=== PATIENT | male | born 1965 | race Caucasian/White ===

== ENCOUNTER 2017-05-17 13:22 | Inpatient (IN) | payer MEDICAID, MEDICARE ==
[~2017-05-17 13:22] MED LIST: NS 0.9% 1000 ML* 1,000 ML IV SCH
[2017-05-17] MEDS ORDERED: Haloperidol TAB* 5 MG PO ONE (19:38)
[2017-05-17] MEDS ORDERED: Haloperidol TAB* 5 MG ONE (19:40)
--- NOTE | 2017-05-17 22:11 | ED ---
Sugar Arguello Alfonso, scribed for Walker Rosales MD on 05/17/17 at 1423 . Altered Mental Status - HPI Summary HPI Summary: LEVEL 5 CAVEAT DUE TO AMS. This patient is a 51 year old M BIBA to [facility] with a chief complaint of AMS since earlier today. Per EMS he was in front of a store with his pants down. The patient rates the aching pain 6/10 in severity. Symptoms alleviated by nothing. EMS reports slurred speech and diaphoresis. He may have missed his morning medications today. PMHx includes schizophrenia. - History Of Current Complaint Chief Complaint: EDMentalHealth Stated Complaint: AMS Time Seen by Provider: 05/17/17 13:27 Hx Obtained From: EMS Hx From Patient Unobtainable Due To: Altered Mental Status Onset/Duration: Still Present Timing: Constant, Lasting Hours Aggravating Factor(s): Nothing Alleviating Factor(s): Nothing Associated Signs And Symptoms: Positive: Negative Related History: Other: - schizophrenia - Allergies/Home Medications Allergies/Adverse Reactions: Allergies Allergy/AdvReac Type Severity Reaction Status Date / Time No Known Allergies Allergy Verified 08/03/14 02:32 PMH/Surg Hx/FS Hx/Imm Hx Endocrine/Hematology History: Reports: Hx Diabetes - diet controled Psychiatric History: Reports: Hx Inpatient Treatment, Hx Community Mental Health Tx, Hx Schizophrenia Denies: Hx Eating Disorder, Hx of Violent Episodes Against Others Infectious Disease History: Denies: Traveled Outside the [place] in Last 30 Days - Family History Known Family History: Positive: Unknown - due to AMS - Social History Alcohol Use: ETOH use Substance Use Type: Reports: None Smoking Status (MU): Heavy Every Day Tobacco Smoker Type: Cigarettes Review of Systems - ROS Summary Review of Systems Summary: LEVEL 5 CAVEAT DUE TO AMS. Positive: Skin Diaphoresis Neurological: Other - AMS and slurred speech All Other Systems Reviewed And Are Negative: No Physical Exam Triage Information Reviewed: Yes Vital Signs On Initial Exam: Initial Vitals Pulse Pulse Ox 84 98 05/17/17 13:51 05/17/17 13:51 Vital Signs Reviewed: Yes Completion Of Physical Exam Limited Due To: Level 5 Appearance: Positive: Well-Appearing, No Pain Distress Skin: Positive: Warm, Skin Color Reflects Adequate Perfusion, Dry Head/Face: Positive: Normal Head/Face Inspection Eyes: Positive: EOMI, ALEXANDRU ENT: Positive: Normal ENT inspection Neck: Positive: Supple, Nontender Respiratory/Lung Sounds: Positive: Clear to Auscultation, Breath Sounds Present Cardiovascular: Positive: RRR Abdomen Description: Positive: Nontender, Soft Bowel Sounds: Positive: Present Musculoskeletal: Positive: Normal, Strength/ROM Intact Neurological: Positive: Sensory/Motor Intact, Other - Alert. Awake. Psychiatric: Positive: Other - Confused. Mumbling. Diagnostics - Vital Signs Vital Signs Temp Pulse Resp BP Pulse Ox 05/17/17 19:45 20 05/17/17 18:35 97.8 F 89 18 123/76 99 05/17/17 16:01 99.1 F 91 18 134/85 99 05/17/17 16:00 86 134/85 99 05/17/17 15:30 91 132/73 99 05/17/17 15:00 73 118/68 99 05/17/17 14:51 82 121/81 99 05/17/17 14:00 80 99 05/17/17 13:51 84 98 - Laboratory Lab Statement: Any lab studies that have been ordered have been reviewed, and results considered in the medical decision making process. - Radiology CXR Radiology Interpretation Completed By: Radiologist - No evidence for acute intrathoracic disease. ED physician has reviewed this radiology report and agrees. - CT Brain CT Interpretation Completed By: Radiologist - No acute intracranial process evident. Negative unenhanced CT of the brain. ED physician has reviewed this radiology report and agrees. C-Spine CT Interpretation Completed By: Radiologist - No evidence for traumatic cervical spine injury. ED physician has reviewed this radiology report and agrees. - EKG 1403 Cardiac Rate: NL - BPM 82 EKG Rhythm: Sinus Rhythm ST Segment: Normal Ectopy: None EKG Interpretation: Q-waves in V1 and V2. Altered Mental Statu Course/Dx - Course Course Of Treatment: ADMITTED TO [facility] AFTER [facility]. NO CRITICAL CARE TIME. - Diagnoses Discharge Diagnoses: Altered mental state, Mental health problem Discharge - Discharge Plan Condition: Stable Disposition: [place] [place] The documentation as recorded by the Sugar loyola Alfonso accurately reflects the service I personally performed and the decisions made by me, Walker Rosales MD.
[2017-05-17] MEDS ORDERED: Al Hydrox/Mg Hydrox/Simet LIQ* 30 ML UDC PO PRN (22:52)
[2017-05-17] MEDS ORDERED: Acetaminophen TAB* 325 MG PO PRN (22:52)
[2017-05-18] MEDS ORDERED: Haloperidol TAB* 5 MG PO PRN (09:04)
[2017-05-18] MEDS: Vitamin THERAPEUTIC TAB PO SCH ×2 (09:11→10:09)
--- NOTE | 2017-05-18 10:03 | RAD ---
Indication: Altered mental status. Comparison: September 27, 2010 CT abdomen. Technique: Upright AP 1304 hours Report: Clear lungs and pleural spaces. Negative for pneumothorax. The heart, pulmonary vasculature, and mediastinal contours are unremarkable. Unremarkable osseous structures and soft tissue contours. IMPRESSION: No evidence for acute intrathoracic disease.
--- NOTE | 2017-05-18 10:08 | RAD ---
INDICATION: Altered mental status. COMPARISON: No relevant prior exams available on the [facility] PACS for comparison. TECHNIQUE: Multidetector CT images foramen magnum to lung apices without contrast. Multiplanar reformation. REPORT: Normal vertebral alignment accounting for exam positioning without spondylolisthesis or subluxation at any level. Negative for cervical vertebral body or posterior element fracture. Negative for paravertebral hematoma. Multilevel degenerative spondylosis and posterior element osteoarthritis. Diffuse disc space narrowing. At C5-C6 mild annular disc bulge and vertebral endplate osteophytes result in mild impression on the ventral margin of the thecal sac. Uncinate process spurring and facet joint osteoarthritis results in mild RIGHT foraminal stenosis. IMPRESSION: No evidence for traumatic cervical spine injury.
--- NOTE | 2017-05-18 10:18 | RAD ---
Indication: Altered mental status. Comparison: No relevant prior exams available on the [facility] [place]ACS for comparison. Technique: Noncontrast CT vertex of skull through foramen magnum. Report: The sulci, ventricles, and basal cisterns are normal for age. Hughes matter white matter differentiation is preserved without evidence for edema. No intra or extra axial hemorrhage, mass, or fluid collection detected. Unremarkable visualized orbital contents. Unremarkable calvarium and skull base. Unremarkable scalp. Mucous retention cysts or polyps in the floor of the RIGHT maxillary sinus. Negative for paranasal sinus fluid levels. Clear mastoid air spaces. IMPRESSION: No acute intracranial process evident. Negative unenhanced CT of the brain.
[2017-05-18 10:43] LABS: Hematocrit 41 % (42-52); Mean Corpuscular HGB Conc 34 g/dl (31-36); Mean Corpuscular Hemoglobin 31 pg (27-31); Mean Corpuscular Volume 90 fL (80-94); Mean Platelet Volume 9 um3 (7.4-10.4); Red Blood Count 4.59 10^6/ul (4.0-5.4); Red Cell Distribution Width 14 % (10.5-15); White Blood Count 8.7 10^3/ul (3.5-10.8)
[2017-05-18] MEDS: Paliperidone TAB* 3 MG TAB PO SCH ×2 (11:03→11:20)
[2017-05-18] MEDS: Divalproex ER TAB(*) 500 MG PO ONE ×2 (11:03→11:20)
[2017-05-18 11:05] LABS: ALT 24 U/L (7-52); AST 21 U/L (13-39); Albumin 4.3 g/dL (3.2-5.2); Alkaline Phosphatase 97 U/L (34-104); Anion Gap 4 mmol/L (2-11); BUN/Creatinine Ratio 23.2 (8-20); Blood Urea Nitrogen 23 mg/dL (6-24); CO2 Carbon Dioxide 28 mmol/L (22-32); Calcium 9.1 mg/dL (8.6-10.3); Chloride 105 mmol/L (101-111); EGFR African American 102.5 (>60); EGFR Non-African American 79.7 (>60); Globulin 2.1 g/dL (2-4); Glucose 120 mg/dL (70-100); Potassium 4.4 mmol/L (3.5-5.0); Sodium 137 mmol/L (133-145); Total Protein 6.4 g/dL (6.4-8.9)
[2017-05-18 11:20] LABS: Acetaminophen < 15 mcg/mL; Alcohol < 10 mg/dL (<10); Salicylate < 2.50 mg/dL (<30)
[2017-05-18] MEDS: clonazePAM TAB(*) 0.5 MG PO PRN (11:20)
[2017-05-18 11:31] LABS: TSH (Thyroid Stimulating Horm) 0.98 mcIU/mL (0.34-5.60)
[2017-05-18 12:49] LABS: Cholesterol 119 mg/dL; HDL Cholesterol 36.3 mg/dL; LDL Cholesterol 65 mg/dL; Triglycerides 91 mg/dL
--- NOTE | 2017-05-18 15:25 | HP ---
HISTORY AND PHYSICAL: DATE OF ADMISSION: 05/17/17 SUPERVISING PSYCHIATRIST: Lamin Benton MD * (DICTATED BY LEO YORK NP) JUSTIFICATION FOR ADMISSION: The patient was brought to the emergency department by police under 9.41. He was actively psychotic and manic in the community. According to the family, he has not been taking medications for the past 2 years. CHIEF COMPLAINT: "I need to know how to get out of criminal charges." HISTORY OF PRESENT ILLNESS: Randal is a 51-year-old male known to this hospital due to multiple past hospitalizations and long-term psychiatric treatment at [facility]. He was last admitted to [facility] in July 2014. He has a known history of schizoaffective disorder bipolar type. The patient was brought to the emergency department via EMS and police after patrons at the [employer] called due to his presentation. Randal was making nonsensical statements, he presented as actively psychotic. His step-mother was available for collateral and told the police stenographer that he has been noncompliant with medications for the past 2 years. He has had a recent admission to [facility]. He had paranoid delusions that the staff was attempting to kill him. Recently, he is awake all night because of his paranoid delusions. During interview today, Randal is hyperverbal with pressured speech, agitated at times. He is tangential. He talks about the [place] being threatening, various relationships are important to him and that he does not want to lose his family. He has persecutory delusions in regards to criminal charges, Nazis, and the social security system. He states that he is willing to take oral medications, but does not want injections and refers to injectable medications as poisoning him and trying to kill him. He reports he is not able to sleep. He reports he is able to eat, but he is notably more thin than in previous hospitalizations. PAST PSYCHIATRIC HISTORY: Randal has a known history of schizoaffective disorder , bipolar type. He has had multiple psychiatric hospitalizations at [facility]. This is approximately his 14th since 2001. He has been treated at [facility] and [facility] for extended periods of time. Previous psychopharmacology includes olanzapine, Invega Sustenna, Geodon, Navane, quetiapine, risperidone, haloperidol and Depakote. Olanzapine caused significant weight gain and hyperglycemia. He also has had a history of involvement with ACT team, but then refused their services due to paranoid delusions. He has had aggressive harassing behavior in the community, but no known history of suicidal behavior. PAST MEDICAL HISTORY: Type 2 diabetes and obesity. CURRENT MEDICATIONS: None for the past year. According to his most recent discharge summary in 2013, he was takin. Depakote. 2. Metformin. 3. Invega Sustenna. ALLERGIES: No known drug allergies. He has previous sensitivity to NAVANE, QUETIAPINE, and RISPERIDONE, likely behavioral side effects. FAMILY PSYCHIATRIC HISTORY: His brother also has severe and persistent mental illness. No known other family psychiatric history. SOCIAL HISTORY: Hasmukh resides in his own apartment alone. He receives disability and some support from his family. His parents are . His mother lives on [place] and visits often. His father and stepmother, Shanna Azevedo, are involved with him. He has no children of his own. I believe he is a graduate of [employer], but I am not 100% sure. There is no known legal history or history. Tobacco history, reports 1 pack a day smoking. REVIEW OF SYSTEMS: Negative for neurological symptoms, visual changes, headaches, respiratory difficulties, chest pain, syncope, gastrointestinal distress, musculoskeletal problems or skin problems. PHYSICAL EXAMINATION APPEARANCE: Healthy-appearing middle-aged man in hospital scrubs, cooperative with examination, agitated at times, but easily redirectable. MOST RECENT VITAL SIGNS: Temperature 98.2, pulse rate 100, respiration rate 16 , O2 sat 100%, BP 132/79. HEENT: Head is normocephalic and atraumatic. Eyes with full ROM and PERRL. Oropharynx is clear without exudates or injections. NECK: Midline trachea. No mass or lymphadenopathy. CHEST: Clear to auscultation bilaterally. CARDIAC: Regular rate and rhythm. Pulses are present bilaterally in lower and upper extremities. ABDOMEN: Soft and nontender. Bowel sounds present. NEUROLOGIC: Gait is within normal limits. All 4 extremities move spontaneously. Cranial nerves II through XII are grossly nonfocal. SKIN: Intact without rash or petechiae over exposed areas. Skin is dry and color indicates adequate perfusion. MENTAL STATUS EXAM: Randal is a 51-year-old middle-aged male, who is disheveled and has poor ADLs. He is somewhat malodorous and noted to have halitosis. He appears stated age. He sits and tolerates interview. He is alert and oriented x3. His concentration is poor. His recall is poor. His mood is agitated. His speech is moderate and rambling, pressured. Affect is flat, blunted. Thought process is impoverished and disorganized. Thought content is negative for SI. Positive for paranoid delusions. His eye contact is fair. Insight is poor. Judgment is poor. Fund of knowledge is adequate. LABORATORY DATA: Obtained this morning as he was noncompliant with blood draw in the emergency room. His CBC is grossly normal, hematocrit is low at 41, lymph percentage is 13%. Chemistry: His BUN-creatinine ratio is high at 23.2, glucose 120. Liver enzymes, protein, and TSH all within normal limits. Electrolytes within normal limits. We are awaiting urinalysis and urine drug screen to be obtained. Toxicology is negative for salicylates, acetaminophen, or alcohol. DIAGNOSES: Ford I: Schizoaffective disorder, bipolar type. Ford II: Deferred. Ford III: Diabetes. Ford IV: Severe stressors related to severe persistent mental illness, interpersonal relationships with family, social isolation. Ford V: GAF is 35. ASSESSMENT: Randal is a 51-year-old male with a history of severe chronic psychotic disorder, who has been hospitalized multiple times with similar presentation of disorganized speech, behavior, and thoughts. Expresses delusional thinking, has a long history of outpatient medication and treatment nonadherence. He requires psychiatric hospitalization for immediate safety and stabilization. PLAN: Admit to adult behavioral services unit on 9.39 status. Code status is full. Safety checks every 15 minutes. Initiate intensive milieu, psychoeducational groups, and individual psychotherapeutic support. Medication management will involve reinstating Invega 3 mg daily and Depakote 500 mg b.i.d. as well as clonazepam 0.5 mg p.o. b.i.d. p.r.n. anxiety and agitation. Estimated length of stay is 5 to 7 days. Discharge planning will involve coordination of outpatient providers and family members with the patient's consent. LEO YORK NP [id number]/[facility] #: [id number] KACIE
[2017-05-18] MEDS: Divalproex DR TAB(*) 500 MG PO SCH (21:26)
[2017-05-19] MEDS: Paliperidone TAB* 3 MG TAB PO SCH (07:58)
[2017-05-19] MEDS: Vitamin THERAPEUTIC TAB PO SCH (07:58)
[2017-05-19] MEDS: Divalproex DR TAB(*) 500 MG PO SCH (07:59)
[2017-05-19] MEDS ORDERED: Paliperidone TAB* 3 MG TAB PO ONE (08:42)
[2017-05-19] MEDS ORDERED: Paliperidone TAB* 6 MG PO SCH (09:00)
[2017-05-19] MEDS ORDERED: Nicotine GUM* 2 MG PO PRN (11:34)
[2017-05-19] MEDS ORDERED: Nicotine PATCH 21 MG/24 HR* PATCH TRANSDERM SCH (12:00)
[2017-05-19] MEDS: Nicotine PATCH 21 MG/24 HR* PATCH TRANSDERM SCH (12:03)
[2017-05-19] MEDS: Mouth Piece, Nicotine* 1 EACH CARTRIDGE INH PRN ×2 (12:04→18:21)
[2017-05-19] MEDS: Nicotine Inhaler* 10 MG AMP INH PRN ×2 (12:04→18:21)
[2017-05-19] MEDS: Nicotine Lozenge* 4 MG LOZENGE MT PRN ×2 (13:49→18:21)
--- NOTE | 2017-05-19 14:34 | PN ---
Subjective - Subjective Service Type: 08422 Hosp care 25 min moderate complexity Subjective: Patient continues to be hyperverbal and tangential. His speech is no longer loud with agitated tone but mumbled and rapid. He speaks of [place], his brother Jarocho, his parents. He states he is fearful of criminal charges against him and is relieved when life underwriter assures him of no known legal problems. Collateral obtained from clinical fellow, Clarice Pepper, at [facility]: Randal is an active patient and receives monthly Invega sustenna 234mg. His last injection was apr 24, 2017. His last po Rx's were on 02/01/17 with 3 refills: depakote ER 1000mg BID, metformin 500mg BID and risperidoen 4mg qhs. He is being assigned to Dr Ng since Dr Maurice's resignation. She does not have record of recent bloodwork in the past year. Objective - Appearance Appearance: Healthy Appearing Dysmorphic Features: Yes Hygiene: Dirty Grooming: Disheveled - Behavior Psychomotor Activities: Normal Exhibits Abnormal Movement: No - Attitude and Relatedness Attitude and Relatedness: Psychotically Related Eye Contact: Fair - Speech Quality: Pressured Latencies: Normal Quantity: Copious - Mood Patient's Decription of Mood: "Anxious" - Affect Observed Affect: Expansive Affect Consistent with: Euphoria - Thought Process Patient's Thought Process: Disorganized, Tangential Thought Content: No Passive Wish, No Suicidal Planning, No Homicidal Ideation, No Paranoid Ideation - Sensorium Experiencing Hallucinations: No, Sensorium is Clear Type of Hallucinations: Visual: No, Auditory: No, Command: No - Level of Consciousness Level of Consciousness: Alert Orientation: Yes Intact, Yes Orientated to Time, Yes Orientated to Place, Yes Orientated to Person - Impulse Control Impulse Control: Poor - Insight and Judgement Insight and Judgement: Poor - Group Participation Particating in Group Activities: No - Medication Management Medication Management Adherence: Yes Assessment - Assessment Merits Inpatient Hospitalization: For Immediate Safety, For Stabilization, Consolidate Improvements, For Discharge Planning Inpatient DSM-IV Dx: schizoaffective d/o, bipolar type; type II diabetes Clinical Impression: Randal is a 51yo male with known chronic psychotic disorder. He presented in the community with bizarre and manic behavior. He has been receiving consistent IM invega through [facility] but adherence to oral mood stabilizer is questionable. He merits hospitalization for stabilization and safety. Plan - Plan Treatment Plan: Name: PAOLO SEPULVEDA Birthdate: 1965 [id number] Stop oral paliperidone and will be given IM invega sustenna. Reinstate outpatient medications and nicotine replacement. Continue acute intensive psychiatric treatment. Continued Medication Management: Continue Outpt Medication Medications: Current Medications Acetaminophen (Tylenol Tab*) 650 mg PO Q4H PRN PRN Reason: PAIN or TEMP > 101 F Al Hydrox/Mg Hydrox/Simethicone (Maalox Plus*) 30 ml PO Q4H PRN PRN Reason: INDIGESTION Clonazepam (Klonopin Tab(*)) 0.5 mg PO BID PRN PRN Reason: AGITATION/ANXIETY Last Admin: 05/18/17 11:20 Dose: 0.5 mg Device (Nicotine Mouth Piece*) 1 each INH .USE WITH NICOTROL PRN PRN Reason: CRAVING Last Admin: 05/19/17 12:04 Dose: 1 each Divalproex Sodium (Depakote Er Tab(*)) 1,000 mg PO BID [facility] Multivitamins (Theragran Tab*) 1 tab PO DAILY [facility] Last Admin: 05/19/17 07:58 Dose: 1 tab Nicotine (Nicotine Inhaler*) 10 mg INH Q2H PRN PRN Reason: CRAVING Last Admin: 05/19/17 12:04 Dose: 10 mg Nicotine (Nicotine Patch 21 Mg/24 Hr*) 1 patch TRANSDERM DAILY@0900 [facility] Last Admin: 05/19/17 12:03 Dose: 1 patch Nicotine Polacrilex (Nicotine Gum*) 2 mg PO Q2H PRN PRN Reason: CRAVING Nicotine Polacrilex (Nicotine Lozenge*) 4 mg MT Q2H PRN PRN Reason: CRAVINGS Last Admin: 05/19/17 13:49 Dose: 4 mg Pharmacy Profile Note (Nicotine Patch Removal Note*) 1 note PATCH OFF 2100 [facility] - Discharge Plan Discharge Plan: Outpatient Follow Up Outpatient Program: [facility]
[2017-05-19] MEDS: metFORMIN* 500 MG TAB PO SCH (16:41)
[2017-05-19] MEDS: Divalproex ER TAB(*) 500 MG PO SCH (21:25)
[2017-05-19] MEDS: Nicotine Patch Removal NOTE PATCH OFF SCH (21:26)
[2017-05-20] MEDS: clonazePAM TAB(*) 0.5 MG PO PRN (03:55)
[2017-05-20] MEDS: Nicotine PATCH 21 MG/24 HR* PATCH TRANSDERM SCH (08:54)
[2017-05-20] MEDS: Vitamin THERAPEUTIC TAB PO SCH (08:55)
[2017-05-20] MEDS: Divalproex ER TAB(*) 500 MG PO SCH ×2 (08:55→20:23)
[2017-05-20] MEDS: metFORMIN* 500 MG TAB PO SCH ×2 (08:55→17:44)
[2017-05-20] MEDS ORDERED: Paliperidone TAB* 6 MG PO SCH (09:00)
[2017-05-20] MEDS ORDERED: Paliperidone SUSTENNA* 234 MG/1.5 ML IM ONE (09:00)
--- NOTE | 2017-05-20 14:31 | PN ---
Subjective - Subjective Service Type: 98120 Hosp care 15 min low complexity Subjective: Patient is seclusive and resting intermittently throughout the day. He is cooperative with interview upon approach. He goes on to describe need for contact with various family members, including his step mother. Noted to be disheveled and wearing and multiple layers of shirts and pants that are prone to slipping down. He declines offer of clothing that is more fitting and states he prefers his own clothing. Objective - Appearance Appearance: Thin Framed Dysmorphic Features: Yes Hygiene: Dirty Grooming: Disheveled - Behavior Psychomotor Activities: Normal Exhibits Abnormal Movement: No - Attitude and Relatedness Attitude and Relatedness: Withdrawn Eye Contact: Fair - Speech Quality: Unpressured Latencies: Normal Quantity: Appropriate - Mood Patient's Decription of Mood: "Okay" - Affect Observed Affect: Good Affect Consistent with: Euthymia - Thought Process Patient's Thought Process: Loose Associations Thought Content: No Passive Wish, No Suicidal Planning, No Homicidal Ideation, No Paranoid Ideation - Sensorium Experiencing Hallucinations: No, Sensorium is Clear Type of Hallucinations: Visual: No, Auditory: No, Command: No - Level of Consciousness Level of Consciousness: Alert Orientation: Yes Intact, Yes Orientated to Time, Yes Orientated to Place, Yes Orientated to Person - Impulse Control Impulse Control: Tenuous - Insight and Judgement Insight and Judgement: Poor - Group Participation Particating in Group Activities: No - Medication Management Medication Management Adherence: Yes Assessment - Assessment Merits Inpatient Hospitalization: For Immediate Safety, For Stabilization, For Discharge Planning Inpatient DSM-IV Dx: schizoaffective d/o, bipolar type; type II diabetes Clinical Impression: Randal is a 51yo male with known chronic psychotic disorder. He presented in the community with bizarre and manic behavior. He has been receiving consistent IM invega through [facility] but adherence to oral mood stabilizer is questionable. He merits hospitalization for stabilization and safety. Plan - Plan Treatment Plan: Name: PAOLO SEPULVEDA Birthdate: 1965 [id number] Stop oral paliperidone and will be given IM invega sustenna today. Obtain valproic acid level in am. Continue acute intensive psychiatric treatment. Continued Medication Management: Continue Outpt Medication Medications: Current Medications Acetaminophen (Tylenol Tab*) 650 mg PO Q4H PRN PRN Reason: PAIN or TEMP > 101 F Al Hydrox/Mg Hydrox/Simethicone (Maalox Plus*) 30 ml PO Q4H PRN PRN Reason: INDIGESTION Clonazepam (Klonopin Tab(*)) 0.5 mg PO BID PRN PRN Reason: AGITATION/ANXIETY Last Admin: 05/20/17 03:55 Dose: 0.5 mg Device (Nicotine Mouth Piece*) 1 each INH .USE WITH NICOTROL PRN PRN Reason: CRAVING Last Admin: 05/19/17 18:21 Dose: 1 each Divalproex Sodium (Depakote Er Tab(*)) 1,000 mg PO BID [facility] Last Admin: 05/20/17 08:55 Dose: 1,000 mg Metformin HCl (Glucophage*) 500 mg PO 0800,1700 [facility] Last Admin: 05/20/17 08:55 Dose: 500 mg Multivitamins (Theragran Tab*) 1 tab PO DAILY [facility] Last Admin: 05/20/17 08:55 Dose: 1 tab Nicotine (Nicotine Inhaler*) 10 mg INH Q2H PRN PRN Reason: CRAVING Last Admin: 05/19/17 18:21 Dose: 10 mg Nicotine (Nicotine Patch 21 Mg/24 Hr*) 1 patch TRANSDERM DAILY@0900 [facility] Last Admin: 05/20/17 08:54 Dose: 1 patch Nicotine Polacrilex (Nicotine Gum*) 2 mg PO Q2H PRN PRN Reason: CRAVING Nicotine Polacrilex (Nicotine Lozenge*) 4 mg MT Q2H PRN PRN Reason: CRAVINGS Last Admin: 05/19/17 18:21 Dose: 4 mg Pharmacy Profile Note (Nicotine Patch Removal Note*) 1 note PATCH OFF 2100 [facility] Last Admin: 05/19/17 21:26 Dose: 1 note - Discharge Plan Discharge Plan: Outpatient Follow Up Outpatient Program: [facility]
[2017-05-20] MEDS: Nicotine Patch Removal NOTE PATCH OFF SCH (20:25)
[2017-05-21] MEDS ORDERED: Paliperidone SUSTENNA* 234 MG/1.5 ML IM ONE (09:00)
[2017-05-21] MEDS: Vitamin THERAPEUTIC TAB PO SCH (09:48)
[2017-05-21] MEDS: Divalproex ER TAB(*) 500 MG PO SCH ×2 (09:49→21:07)
[2017-05-21] MEDS: Nicotine PATCH 21 MG/24 HR* PATCH TRANSDERM SCH (09:49)
[2017-05-21] MEDS: Nicotine Inhaler* 10 MG AMP INH PRN (09:51)
[2017-05-21] MEDS: metFORMIN* 500 MG TAB PO SCH ×2 (10:44→17:59)
--- NOTE | 2017-05-21 16:37 | PN ---
Subjective - Subjective Service Type: 33518 Hosp care 15 min low complexity Subjective: Patient is seclusive to self and often rests in his room. He is prompted to join meals and milieu. Noted to be disheveled and loud on the phone. He refused Invega Sustenna citing that he expects to obtain his injection at the clinic on the . Objective - Appearance Appearance: Well Developed/Nourished Dysmorphic Features: Yes Hygiene: Dirty Grooming: Disheveled - Behavior Psychomotor Activities: Normal Exhibits Abnormal Movement: No - Attitude and Relatedness Attitude and Relatedness: Withdrawn Eye Contact: Fair - Speech Quality: Pressured Latencies: Normal Quantity: Copious - Mood Patient's Decription of Mood: "Okay" - Affect Observed Affect: Expansive Affect Consistent with: Euphoria - Thought Process Patient's Thought Process: Disorganized, Tangential, Impoverished Thought Content: No Passive Wish, No Suicidal Planning, No Homicidal Ideation, No Paranoid Ideation - Sensorium Experiencing Hallucinations: No, Sensorium is Clear Type of Hallucinations: Visual: No, Auditory: No, Command: No - Level of Consciousness Level of Consciousness: Alert Orientation: Yes Intact, Yes Orientated to Time, Yes Orientated to Place, Yes Orientated to Person - Impulse Control Impulse Control: Poor - Insight and Judgement Insight and Judgement: Poor - Group Participation Particating in Group Activities: No - Medication Management Medication Management Adherence: Partial Assessment - Assessment Merits Inpatient Hospitalization: For Immediate Safety, For Stabilization, For Discharge Planning Inpatient DSM-IV Dx: schizoaffective d/o, bipolar type; type II diabetes Clinical Impression: Randal is a 51yo male with known chronic psychotic disorder. He presented in the community with bizarre and manic behavior. He has been receiving consistent IM invega through [facility] but adherence to oral mood stabilizer is questionable. He merits hospitalization for stabilization and safety. Plan - Plan Treatment Plan: Name: PAOLO SEPULVEDA Birthdate: 1965 [id number] Continue acute intensive psychiatric treatment. Will inform patient of timeline since last injection and encourage to accept IM invega. Change depakote ER to 500mg qam and 1500mg qhs due to daytime sedation. Continued Medication Management: Continue Outpt Medication Medications: Current Medications Acetaminophen (Tylenol Tab*) 650 mg PO Q4H PRN PRN Reason: PAIN or TEMP > 101 F Al Hydrox/Mg Hydrox/Simethicone (Maalox Plus*) 30 ml PO Q4H PRN PRN Reason: INDIGESTION Clonazepam (Klonopin Tab(*)) 0.5 mg PO BID PRN PRN Reason: AGITATION/ANXIETY Last Admin: 05/20/17 03:55 Dose: 0.5 mg Device (Nicotine Mouth Piece*) 1 each INH .USE WITH NICOTROL PRN PRN Reason: CRAVING Last Admin: 05/19/17 18:21 Dose: 1 each Divalproex Sodium (Depakote Er Tab(*)) 1,500 mg PO BEDTIME [facility] Divalproex Sodium (Depakote Er Tab(*)) 500 mg PO DAILY [facility] Metformin HCl (Glucophage*) 500 mg PO 0800,1700 [facility] Last Admin: 05/21/17 10:44 Dose: 500 mg Multivitamins (Theragran Tab*) 1 tab PO DAILY [facility] Last Admin: 05/21/17 09:48 Dose: 1 tab Nicotine (Nicotine Inhaler*) 10 mg INH Q2H PRN PRN Reason: CRAVING Last Admin: 05/21/17 09:51 Dose: 10 mg Nicotine (Nicotine Patch 21 Mg/24 Hr*) 1 patch TRANSDERM DAILY@0900 [facility] Last Admin: 05/21/17 09:49 Dose: 1 patch Nicotine Polacrilex (Nicotine Gum*) 2 mg PO Q2H PRN PRN Reason: CRAVING Nicotine Polacrilex (Nicotine Lozenge*) 4 mg MT Q2H PRN PRN Reason: CRAVINGS Last Admin: 05/19/17 18:21 Dose: 4 mg Pharmacy Profile Note (Nicotine Patch Removal Note*) 1 note PATCH OFF 2100 [facility] Last Admin: 05/20/17 20:25 Dose: 1 note - Discharge Plan Discharge Plan: Outpatient Follow Up Outpatient Program: [facility]
[2017-05-21] MEDS: Nicotine Patch Removal NOTE PATCH OFF SCH (21:08)
[2017-05-22] MEDS: metFORMIN* 500 MG TAB PO SCH ×2 (08:28→20:42)
[2017-05-22] MEDS: Nicotine PATCH 21 MG/24 HR* PATCH TRANSDERM SCH (08:28)
[2017-05-22] MEDS: Divalproex ER TAB(*) 500 MG PO SCH ×2 (08:28→20:41)
[2017-05-22] MEDS: Vitamin THERAPEUTIC TAB PO SCH (08:30)
[2017-05-22] MEDS ORDERED: Paliperidone SUSTENNA* 234 MG/1.5 ML IM ONE (10:19)
--- NOTE | 2017-05-22 12:30 | PN ---
Subjective - Subjective Service Type: 15957 Hosp care 25 min moderate complexity Subjective: Patient noted to be talking aloud alone in his room upon approach. He continues to be disorganized and tangential in conversation. He agreed to obtain Invega injection this morning as this was 4 weeks from last injection. He is encouraged to perform ADLs but politely declines. Objective - Appearance Appearance: Well Developed/Nourished Dysmorphic Features: Yes Hygiene: Dirty Grooming: Disheveled - Behavior Psychomotor Activities: Normal Exhibits Abnormal Movement: No - Attitude and Relatedness Attitude and Relatedness: Psychotically Related Eye Contact: Fair - Speech Quality: Pressured Latencies: Normal Quantity: Appropriate - Mood Patient's Decription of Mood: "Okay" - Affect Observed Affect: Expansive Affect Consistent with: Euphoria - Thought Process Patient's Thought Process: Incoherent, Tangential Thought Content: No Passive Wish, No Suicidal Planning, No Homicidal Ideation, No Paranoid Ideation - Sensorium Type of Hallucinations: Visual: Yes, Auditory: Yes, Command: No - Level of Consciousness Level of Consciousness: Alert Orientation: Yes Intact, Yes Orientated to Time, Yes Orientated to Place, Yes Orientated to Person - Impulse Control Impulse Control: Impaired - Insight and Judgement Insight and Judgement: Poor - Group Participation Particating in Group Activities: No - Medication Management Medication Management Adherence: Yes Assessment - Assessment Merits Inpatient Hospitalization: For Immediate Safety, For Stabilization, Consolidate Improvements, For Discharge Planning Inpatient DSM-IV Dx: schizoaffective d/o, bipolar type; type II diabetes Clinical Impression: Randal is a 51yo male with known chronic psychotic disorder. He presented in the community with bizarre and manic behavior. He has been receiving consistent IM invega through [facility] but adherence to oral mood stabilizer is questionable. He merits hospitalization for stabilization and safety. Plan - Plan Treatment Plan: Name: PAOLO SEPULVEDA Birthdate: 1965 [id number] Continue acute intensive psychiatric treatment. Accepted offer of Invega sustenna IM today. Changed depakote ER to 500mg qam and 1500mg qhs due to daytime sedation. Continued Medication Management: Continue Outpt Medication Medications: Current Medications Acetaminophen (Tylenol Tab*) 650 mg PO Q4H PRN PRN Reason: PAIN or TEMP > 101 F Al Hydrox/Mg Hydrox/Simethicone (Maalox Plus*) 30 ml PO Q4H PRN PRN Reason: INDIGESTION Clonazepam (Klonopin Tab(*)) 0.5 mg PO BID PRN PRN Reason: AGITATION/ANXIETY Last Admin: 05/20/17 03:55 Dose: 0.5 mg Device (Nicotine Mouth Piece*) 1 each INH .USE WITH NICOTROL PRN PRN Reason: CRAVING Last Admin: 05/19/17 18:21 Dose: 1 each Divalproex Sodium (Depakote Er Tab(*)) 1,500 mg PO BEDTIME [facility] Last Admin: 05/21/17 21:07 Dose: 1,500 mg Divalproex Sodium (Depakote Er Tab(*)) 500 mg PO DAILY [facility] Last Admin: 05/22/17 08:28 Dose: 500 mg Metformin HCl (Glucophage*) 500 mg PO 0800,1700 [facility] Last Admin: 05/22/17 08:28 Dose: 500 mg Multivitamins (Theragran Tab*) 1 tab PO DAILY [facility] Last Admin: 05/22/17 08:30 Dose: Not Given Nicotine (Nicotine Inhaler*) 10 mg INH Q2H PRN PRN Reason: CRAVING Last Admin: 05/21/17 09:51 Dose: 10 mg Nicotine (Nicotine Patch 21 Mg/24 Hr*) 1 patch TRANSDERM DAILY@0900 [facility] Last Admin: 05/22/17 08:28 Dose: 1 patch Nicotine Polacrilex (Nicotine Gum*) 2 mg PO Q2H PRN PRN Reason: CRAVING Nicotine Polacrilex (Nicotine Lozenge*) 4 mg MT Q2H PRN PRN Reason: CRAVINGS Last Admin: 05/19/17 18:21 Dose: 4 mg Pharmacy Profile Note (Nicotine Patch Removal Note*) 1 note PATCH OFF 2100 [facility] Last Admin: 05/21/17 21:08 Dose: Not Given - Discharge Plan Discharge Plan: Outpatient Follow Up Outpatient Program: [facility]
[2017-05-22] MEDS: Nicotine Patch Removal NOTE PATCH OFF SCH (20:45)
[2017-05-23] MEDS: metFORMIN* 500 MG TAB PO SCH ×2 (08:20→17:05)
[2017-05-23] MEDS: Divalproex ER TAB(*) 500 MG PO SCH ×2 (09:16→20:27)
[2017-05-23] MEDS: Nicotine PATCH 21 MG/24 HR* PATCH TRANSDERM SCH (09:17)
[2017-05-23] MEDS: Vitamin THERAPEUTIC TAB PO SCH (09:17)
[2017-05-23] MEDS: Nicotine Inhaler* 10 MG AMP INH PRN (20:29)
[2017-05-23] MEDS: Nicotine Patch Removal NOTE PATCH OFF SCH (20:30)
[2017-05-24] MEDS: Vitamin THERAPEUTIC TAB PO SCH (08:36)
[2017-05-24] MEDS: metFORMIN* 500 MG TAB PO SCH ×2 (08:37→16:47)
[2017-05-24] MEDS: Divalproex ER TAB(*) 500 MG PO SCH ×2 (08:37→21:05)
[2017-05-24] MEDS: Mouth Piece, Nicotine* 1 EACH CARTRIDGE INH PRN (08:38)
[2017-05-24] MEDS: Nicotine Inhaler* 10 MG AMP INH PRN (08:39)
[2017-05-24] MEDS: Nicotine PATCH 21 MG/24 HR* PATCH TRANSDERM SCH (09:20)
[2017-05-24] MEDS: clonazePAM TAB(*) 0.5 MG PO PRN (10:42)
[2017-05-24] MEDS: Nicotine Patch Removal NOTE PATCH OFF SCH (21:06)
[2017-05-25] MEDS: metFORMIN* 500 MG TAB PO SCH ×2 (08:11→18:23)
[2017-05-25] MEDS: Divalproex ER TAB(*) 500 MG PO SCH ×2 (08:56→20:45)
[2017-05-25] MEDS: Vitamin THERAPEUTIC TAB PO SCH (08:56)
[2017-05-25] MEDS: Nicotine PATCH 21 MG/24 HR* PATCH TRANSDERM SCH (08:56)
[2017-05-25] MEDS ORDERED: risperiDONE TAB* 1 MG PO ONE (11:06)
--- NOTE | 2017-05-25 17:03 | PN ---
Subjective - Subjective Service Type: [id number] Hosp care 15 min low complexity Subjective: Patient continues to present as disorganized. He is hyperverbal, disheveled and seclusive. He is noted by staff to yell at his mother when she visits. He is awake multiple times through the night. He is observed to attend to internal stimuli. Objective - Appearance Appearance: Thin Framed Dysmorphic Features: Yes Hygiene: Dirty Grooming: Disheveled - Behavior Psychomotor Activities: Normal Exhibits Abnormal Movement: No - Attitude and Relatedness Attitude and Relatedness: Psychotically Related Eye Contact: Poor - Speech Quality: Pressured Latencies: Normal Quantity: Appropriate - Mood Patient's Decription of Mood: "Okay" - Affect Observed Affect: Expansive Affect Consistent with: Euphoria - Thought Process Patient's Thought Process: Tangential Thought Content: No Passive Wish, No Suicidal Planning, No Homicidal Ideation, No Paranoid Ideation - Sensorium Experiencing Hallucinations: Yes Type of Hallucinations: Visual: Yes, Auditory: Yes, Command: No - Level of Consciousness Level of Consciousness: Alert Orientation: Yes Intact, Yes Orientated to Time, Yes Orientated to Place, Yes Orientated to Person - Impulse Control Impulse Control: Tenuous - Insight and Judgement Insight and Judgement: Poor - Group Participation Particating in Group Activities: No - Medication Management Medication Management Adherence: Yes Assessment - Assessment Merits Inpatient Hospitalization: For Immediate Safety, For Stabilization, To Initiate Treatment, Consolidate Improvements Inpatient DSM-IV Dx: schizoaffective d/o, bipolar type; type II diabetes Clinical Impression: Randal is a 51yo male with known chronic psychotic disorder. He presented in the community with bizarre and manic behavior. He has been receiving consistent IM invega through [facility] but adherence to oral mood stabilizer is questionable. He merits hospitalization for stabilization and safety. Plan - Plan Treatment Plan: Name: PAOLO SEPULVEDA Birthdate: 1965 [id number] Continue acute intensive psychiatric treatment. Add risperidone to target psychosis and jorge. Continued Medication Management: Continue Outpt Medication Medications: Current Medications Acetaminophen (Tylenol Tab*) 650 mg PO Q4H PRN PRN Reason: PAIN or TEMP > 101 F Al Hydrox/Mg Hydrox/Simethicone (Maalox Plus*) 30 ml PO Q4H PRN PRN Reason: INDIGESTION Clonazepam (Klonopin Tab(*)) 0.5 mg PO BID PRN PRN Reason: AGITATION/ANXIETY Last Admin: 05/24/17 10:42 Dose: 0.5 mg Device (Nicotine Mouth Piece*) 1 each INH .USE WITH NICOTROL PRN PRN Reason: CRAVING Last Admin: 05/24/17 08:38 Dose: 1 each Divalproex Sodium (Depakote Er Tab(*)) 1,500 mg PO BEDTIME [facility] Last Admin: 05/24/17 21:05 Dose: 1,500 mg Divalproex Sodium (Depakote Er Tab(*)) 500 mg PO DAILY [facility] Last Admin: 05/25/17 08:56 Dose: 500 mg Metformin HCl (Glucophage*) 500 mg PO 0800,1700 [facility] Last Admin: 05/25/17 08:11 Dose: 500 mg Multivitamins (Theragran Tab*) 1 tab PO DAILY [facility] Last Admin: 05/25/17 08:56 Dose: 1 tab Nicotine (Nicotine Inhaler*) 10 mg INH Q2H PRN PRN Reason: CRAVING Last Admin: 05/24/17 08:39 Dose: 10 mg Nicotine (Nicotine Patch 21 Mg/24 Hr*) 1 patch TRANSDERM DAILY@0900 [facility] Last Admin: 05/25/17 08:56 Dose: 1 patch Nicotine Polacrilex (Nicotine Gum*) 2 mg PO Q2H PRN PRN Reason: CRAVING Nicotine Polacrilex (Nicotine Lozenge*) 4 mg MT Q2H PRN PRN Reason: CRAVINGS Last Admin: 05/19/17 18:21 Dose: 4 mg Pharmacy Profile Note (Nicotine Patch Removal Note*) 1 note PATCH OFF 2100 [facility] Last Admin: 05/24/17 21:06 Dose: 1 note Risperidone (Risperdal*) 2 mg PO BEDTIME [facility] - Discharge Plan Discharge Plan: Outpatient Follow Up Outpatient Program: [facility]
[2017-05-25] MEDS ORDERED: risperiDONE TAB* 2 MG PO SCH (21:00)
[2017-05-25] MEDS: Nicotine Patch Removal NOTE PATCH OFF SCH (22:07)
[2017-05-26] MEDS: metFORMIN* 500 MG TAB PO SCH ×2 (08:31→17:46)
[2017-05-26] MEDS: Divalproex ER TAB(*) 500 MG PO SCH ×2 (08:32→20:46)
[2017-05-26] MEDS: Vitamin THERAPEUTIC TAB PO SCH (08:32)
[2017-05-26] MEDS: Nicotine PATCH 21 MG/24 HR* PATCH TRANSDERM SCH (08:32)
[2017-05-26] MEDS: clonazePAM TAB(*) 0.5 MG PO PRN (11:30)
[2017-05-26] MEDS ORDERED: risperiDONE TAB* 3 MG PO SCH (11:44)
[2017-05-26] MEDS: Nicotine Lozenge* 4 MG LOZENGE MT PRN (14:37)
[2017-05-26] MEDS: Nicotine Inhaler* 10 MG AMP INH PRN (14:37)
--- NOTE | 2017-05-26 15:24 | PN ---
Subjective - Subjective Service Type: 42758 Hosp care 25 min moderate complexity Subjective: Patient continues to be disorganized, hyperverbal and tangential. He is observed to argue with himself alone in his room. He is sleeping erratically, briefly throughout the day and night. He is refusing ADLs and remains in the same clothing. He states he is "afraid of the shower." He is expressing delusions about his parents being in trouble and states he is "clairvoyant." Patient signs ROIs for his mother, Amanda, and his stepmother, Shanna. Patient's father and stepmother visit over lunch. They are updated with plan of care. Mr Hernandes reports that [facility] has mentioned potential utilizing clozaril due to patient's worsening symptoms. Objective - Appearance Appearance: Thin Framed Dysmorphic Features: No Hygiene: Dirty Grooming: Disheveled - Behavior Psychomotor Activities: Normal Exhibits Abnormal Movement: No - Attitude and Relatedness Attitude and Relatedness: Psychotically Related Eye Contact: Poor - Speech Quality: Pressured Latencies: Normal Quantity: Copious - Mood Patient's Decription of Mood: "confused" - Affect Observed Affect: Labile Affect Consistent with: Euphoria - Thought Process Patient's Thought Process: Tangential, Filght of Ideas Thought Content: Yes Paranoid Ideation, No Passive Wish, No Suicidal Planning, No Homicidal Ideation - Sensorium Experiencing Hallucinations: Yes Type of Hallucinations: Visual: Yes, Auditory: Yes, Command: No - Level of Consciousness Level of Consciousness: Alert Orientation: Yes Intact, Yes Orientated to Time, Yes Orientated to Place, Yes Orientated to Person - Impulse Control Impulse Control: Poor - Insight and Judgement Insight and Judgement: Poor - Group Participation Particating in Group Activities: No - Medication Management Medication Management Adherence: Yes Assessment - Assessment Merits Inpatient Hospitalization: For Immediate Safety, For Stabilization, To Initiate Treatment, For Ongoing Evaluation Inpatient DSM-IV Dx: schizoaffective d/o, bipolar type; type II diabetes Clinical Impression: Randal is a 51yo male with known chronic psychotic disorder. He presented in the community with bizarre and manic behavior. He has been receiving consistent IM invega through [facility] but adherence to oral mood stabilizer is questionable. Randal continues to present as disorganized and manic with psychotic thinking. Will pursue referral to [facility]. Plan - Plan Treatment Plan: Name: PAOLO HERNANDES Birthdate: 1965 [id number] Continue acute intensive psychiatric treatment. increase risperidone and depakote to target psychosis and jorge. Pursue referral to [facility]. Continued Medication Management: Different Medication Medications: Current Medications Acetaminophen (Tylenol Tab*) 650 mg PO Q4H PRN PRN Reason: PAIN or TEMP > 101 F Al Hydrox/Mg Hydrox/Simethicone (Maalox Plus*) 30 ml PO Q4H PRN PRN Reason: INDIGESTION Clonazepam (Klonopin Tab(*)) 0.5 mg PO BID PRN PRN Reason: AGITATION/ANXIETY Last Admin: 05/26/17 11:30 Dose: 0.5 mg Device (Nicotine Mouth Piece*) 1 each INH .USE WITH NICOTROL PRN PRN Reason: CRAVING Last Admin: 05/24/17 08:38 Dose: 1 each Divalproex Sodium (Depakote Er Tab(*)) 1,500 mg PO BEDTIME [facility] Last Admin: 05/25/17 20:45 Dose: 1,500 mg Divalproex Sodium (Depakote Er Tab(*)) 750 mg PO DAILY [facility] Metformin HCl (Glucophage*) 500 mg PO 0800,1700 [facility] Last Admin: 05/26/17 08:31 Dose: 500 mg Multivitamins (Theragran Tab*) 1 tab PO DAILY [facility] Last Admin: 05/26/17 08:32 Dose: 1 tab Nicotine (Nicotine Inhaler*) 10 mg INH Q2H PRN PRN Reason: CRAVING Last Admin: 05/26/17 14:37 Dose: 10 mg Nicotine (Nicotine Patch 21 Mg/24 Hr*) 1 patch TRANSDERM DAILY@0900 [facility] Last Admin: 05/26/17 08:32 Dose: 1 patch Nicotine Polacrilex (Nicotine Gum*) 2 mg PO Q2H PRN PRN Reason: CRAVING Nicotine Polacrilex (Nicotine Lozenge*) 4 mg MT Q2H PRN PRN Reason: CRAVINGS Last Admin: 05/26/17 14:37 Dose: 4 mg Pharmacy Profile Note (Nicotine Patch Removal Note*) 1 note PATCH OFF 2100 [facility] Last Admin: 05/25/17 22:07 Dose: Not Given Risperidone (Risperdal*) 3 mg PO BEDTIME [facility] - Discharge Plan Discharge Plan: Consider Longer Term Tx
[2017-05-26] MEDS: Nicotine Patch Removal NOTE PATCH OFF SCH (20:45)
[2017-05-27] MEDS: Vitamin THERAPEUTIC TAB PO SCH (07:49)
[2017-05-27] MEDS: metFORMIN* 500 MG TAB PO SCH ×2 (07:49→16:58)
[2017-05-27] MEDS: Nicotine PATCH 21 MG/24 HR* PATCH TRANSDERM SCH (07:49)
[2017-05-27] MEDS: Divalproex ER TAB(*) 250 MG PO SCH (07:50)
[2017-05-27] MEDS: clonazePAM TAB(*) 0.5 MG PO PRN (12:57)
--- NOTE | 2017-05-27 15:36 | PN ---
Subjective - Subjective Service Type: [id number] Hosp care 25 min moderate complexity Subjective: Patient continues to be disorganized and psychotically related. His speech is tangential, pressured and loud at times. He has not performed ADLs or changed his clothing, despite staff attempts to assist. [employer] notified him of process to refer to state hospitalization. He has told his family members that he is leaving today, which is not the case. His sleep improved last night. This writer technical publications spoke with outpatient therapist, Jonnathan Quiroz. He states that providers at clinic and family members have discussed potential of clozapine therapy due to failed trials of other medications. Randal's brother, Jerald, responded well to clozapine therapy when adherent to the medication. [employer] returned call to patient's mother, Amandadra Peters, and updated on plan of care. She expressed agreement with clozapine trial and states understanding of process to refer Randal to state hospitalization. She states that when she visited Randal last weekend, he was expressing affection, that is not typical for him. For example, he told her "I love you" and she does not recall him ever saying that. Also, he hugged his father. Objective - Appearance Appearance: Thin Framed Dysmorphic Features: Yes Hygiene: Dirty Grooming: Disheveled - Behavior Psychomotor Activities: Normal Exhibits Abnormal Movement: No - Attitude and Relatedness Attitude and Relatedness: Psychotically Related Eye Contact: Fair - Speech Quality: Pressured Latencies: Normal Quantity: Copious - Mood Patient's Decription of Mood: "Okay" - Affect Observed Affect: Expansive Affect Consistent with: Euphoria - Thought Process Patient's Thought Process: Tangential Thought Content: Yes Paranoid Ideation, No Passive Wish, No Suicidal Planning, No Homicidal Ideation - Sensorium Experiencing Hallucinations: Yes Type of Hallucinations: Visual: Yes, Auditory: Yes - Level of Consciousness Orientation: Yes Intact, Yes Orientated to Time, Yes Orientated to Place, Yes Orientated to Person - Impulse Control Impulse Control: Tenuous - Insight and Judgement Insight and Judgement: Poor - Group Participation Particating in Group Activities: No - Medication Management Medication Management Adherence: Yes Assessment - Assessment Merits Inpatient Hospitalization: For Immediate Safety, For Stabilization, To Initiate Treatment Inpatient DSM-IV Dx: schizoaffective d/o, bipolar type; type II diabetes Clinical Impression: Randal is a 51yo male with known chronic psychotic disorder. He presented in the community with bizarre and manic behavior. He has been receiving consistent IM invega through [facility] but adherence to oral mood stabilizer is questionable. Randal continues to present as disorganized and manic with psychotic thinking. Will start clozapine trial and pursue referral to [facility]. Plan - Plan Treatment Plan: Name: PAOLO SEPULVEDA Birthdate: 1965 [id number] Continue acute intensive psychiatric treatment. DC risperidone and start low dose of clozapine. Pursue referral to [facility]. Continued Medication Management: Different Medication Medications: Current Medications Acetaminophen (Tylenol Tab*) 650 mg PO Q4H PRN PRN Reason: PAIN or TEMP > 101 F Al Hydrox/Mg Hydrox/Simethicone (Maalox Plus*) 30 ml PO Q4H PRN PRN Reason: INDIGESTION Clonazepam (Klonopin Tab(*)) 0.5 mg PO BID PRN PRN Reason: AGITATION/ANXIETY Last Admin: 05/27/17 12:57 Dose: 0.5 mg Clozapine (Clozapine Tab*) 12.5 mg PO BEDTIME [facility] Device (Nicotine Mouth Piece*) 1 each INH .USE WITH NICOTROL PRN PRN Reason: CRAVING Last Admin: 05/24/17 08:38 Dose: 1 each Divalproex Sodium (Depakote Er Tab(*)) 1,500 mg PO BEDTIME [facility] Last Admin: 05/26/17 20:46 Dose: 1,500 mg Divalproex Sodium (Depakote Er Tab(*)) 750 mg PO DAILY [facility] Last Admin: 05/27/17 07:50 Dose: 750 mg Sodium Chloride (Ns 0.9% 1000 Ml*) 1,000 mls @ 666.667 mls/hr IV ED ONCE [facility] Metformin HCl (Glucophage*) 500 mg PO 0800,1700 [facility] Last Admin: 05/27/17 07:49 Dose: 500 mg Multivitamins (Theragran Tab*) 1 tab PO DAILY [facility] Last Admin: 05/27/17 07:49 Dose: 1 tab Nicotine (Nicotine Inhaler*) 10 mg INH Q2H PRN PRN Reason: CRAVING Last Admin: 05/26/17 14:37 Dose: 10 mg Nicotine (Nicotine Patch 21 Mg/24 Hr*) 1 patch TRANSDERM DAILY@0900 [facility] Last Admin: 05/27/17 07:49 Dose: 1 patch Nicotine Polacrilex (Nicotine Gum*) 2 mg PO Q2H PRN PRN Reason: CRAVING Nicotine Polacrilex (Nicotine Lozenge*) 4 mg MT Q2H PRN PRN Reason: CRAVINGS Last Admin: 05/26/17 14:37 Dose: 4 mg Pharmacy Profile Note (Nicotine Patch Removal Note*) 1 note PATCH OFF 2100 [facility] Last Admin: 05/26/17 20:45 Dose: 1 note - Discharge Plan Discharge Plan: Consider Longer Term Tx Outpatient Program: [facility]
[2017-05-27] MEDS: Divalproex ER TAB(*) 500 MG PO SCH (20:50)
[2017-05-27] MEDS: CloZAPine TAB* 25 MG TAB PO SCH (20:50)
[2017-05-27] MEDS: Nicotine Patch Removal NOTE PATCH OFF SCH (23:15)
[2017-05-28 07:42] VITALS: BP 103/70
[2017-05-28] MEDS: Vitamin THERAPEUTIC TAB PO SCH (10:13)
[2017-05-28] MEDS: Divalproex ER TAB(*) 250 MG PO SCH (10:13)
[2017-05-28] MEDS: metFORMIN* 500 MG TAB PO SCH ×2 (10:13→18:28)
[2017-05-28] MEDS: Nicotine PATCH 21 MG/24 HR* PATCH TRANSDERM SCH (10:14)
--- NOTE | 2017-05-28 17:02 | PN ---
Subjective - Subjective Service Type: 52810 Hosp care 15 min low complexity Subjective: Hasmukh continues to be disorganized and manic. He has pressured speech, is tangential and responds to internal stimuli. He has not completed ADLs and continues to wear the same clothing. Referral to [facility] was accepted and patient will be transported tomorrow. Patient 's mother, Amanda, notified. Objective - Appearance Appearance: Thin Framed Dysmorphic Features: Yes Hygiene: Dirty Grooming: Disheveled - Behavior Psychomotor Activities: Normal Exhibits Abnormal Movement: No - Attitude and Relatedness Attitude and Relatedness: Psychotically Related Eye Contact: Fair - Speech Quality: Pressured Latencies: Normal Quantity: Copious - Mood Patient's Decription of Mood: "Anxious" - Affect Observed Affect: Labile Affect Consistent with: Euphoria - Thought Process Patient's Thought Process: Tangential Thought Content: Yes Paranoid Ideation, No Passive Wish, No Suicidal Planning, No Homicidal Ideation - Sensorium Experiencing Hallucinations: Yes Type of Hallucinations: Visual: Yes, Auditory: Yes, Command: No - Level of Consciousness Level of Consciousness: Alert Orientation: Yes Intact, Yes Orientated to Time, Yes Orientated to Place, Yes Orientated to Person - Impulse Control Impulse Control: Tenuous - Insight and Judgement Insight and Judgement: Poor - Group Participation Particating in Group Activities: No - Medication Management Medication Management Adherence: Yes Assessment - Assessment Merits Inpatient Hospitalization: For Stabilization, To Initiate Treatment, For Ongoing Evaluation Inpatient DSM-IV Dx: schizoaffective d/o, bipolar type; type II diabetes Clinical Impression: Randal is a 51yo male with known chronic psychotic disorder. He presented in the community with bizarre and manic behavior. He has been receiving consistent IM invega through [facility] but adherence to oral mood stabilizer is questionable. Randal continues to present as disorganized and manic with psychotic thinking. Clozapine trial started and patient accepted to [facility]. Plan - Plan Treatment Plan: Name: HASMUKH SEPULVEDA Birthdate: 1965 [id number] Continue acute intensive psychiatric treatment. Clozapine trial started. Obtain CBC with diff and VA level in AM. Transfer to [facility] in am. Continued Medication Management: Different Medication Medications: Current Medications Acetaminophen (Tylenol Tab*) 650 mg PO Q4H PRN PRN Reason: PAIN or TEMP > 101 F Al Hydrox/Mg Hydrox/Simethicone (Maalox Plus*) 30 ml PO Q4H PRN PRN Reason: INDIGESTION Clonazepam (Klonopin Tab(*)) 0.5 mg PO BID PRN PRN Reason: AGITATION/ANXIETY Last Admin: 05/27/17 12:57 Dose: 0.5 mg Clozapine (Clozapine Tab*) 12.5 mg PO BEDTIME [facility] Last Admin: 05/27/17 20:50 Dose: 12.5 mg Device (Nicotine Mouth Piece*) 1 each INH .USE WITH NICOTROL PRN PRN Reason: CRAVING Last Admin: 05/24/17 08:38 Dose: 1 each Divalproex Sodium (Depakote Er Tab(*)) 1,500 mg PO BEDTIME [facility] Last Admin: 05/27/17 20:50 Dose: 1,500 mg Divalproex Sodium (Depakote Er Tab(*)) 750 mg PO DAILY [facility] Last Admin: 05/28/17 10:13 Dose: 750 mg Sodium Chloride (Ns 0.9% 1000 Ml*) 1,000 mls @ 1,000 mls/hr IV ED ONCE [facility] Metformin HCl (Glucophage*) 500 mg PO 0800,1700 [facility] Last Admin: 05/28/17 10:13 Dose: 500 mg Multivitamins (Theragran Tab*) 1 tab PO DAILY [facility] Last Admin: 05/28/17 10:13 Dose: 1 tab Nicotine (Nicotine Inhaler*) 10 mg INH Q2H PRN PRN Reason: CRAVING Last Admin: 05/26/17 14:37 Dose: 10 mg Nicotine (Nicotine Patch 21 Mg/24 Hr*) 1 patch TRANSDERM DAILY@0900 [facility] Last Admin: 05/28/17 10:14 Dose: 1 patch Nicotine Polacrilex (Nicotine Gum*) 2 mg PO Q2H PRN PRN Reason: CRAVING Nicotine Polacrilex (Nicotine Lozenge*) 4 mg MT Q2H PRN PRN Reason: CRAVINGS Last Admin: 05/26/17 14:37 Dose: 4 mg Pharmacy Profile Note (Nicotine Patch Removal Note*) 1 note PATCH OFF 2100 [facility] Last Admin: 05/27/17 23:15 Dose: Not Given - Discharge Plan Discharge Plan: Consider Longer Term Tx
[2017-05-28] MEDS: Nicotine Inhaler* 10 MG AMP INH PRN (18:30)
[2017-05-28] MEDS: Mouth Piece, Nicotine* 1 EACH CARTRIDGE INH PRN (18:30)
[2017-05-28] MEDS: clonazePAM TAB(*) 0.5 MG PO PRN (20:47)
[2017-05-28] MEDS: CloZAPine TAB* 25 MG TAB PO SCH (20:47)
[2017-05-28] MEDS: Divalproex ER TAB(*) 500 MG PO SCH (20:47)
[2017-05-28] MEDS: Nicotine Patch Removal NOTE PATCH OFF SCH (21:10)
[2017-05-29 08:04] LABS: Hematocrit 43 % (42-52); Hemoglobin 14.5 g/dl (14.0-18.0); Mean Corpuscular HGB Conc 34 g/dl (31-36); Mean Corpuscular Hemoglobin 31 pg (27-31); Mean Corpuscular Volume 90 fL (80-94); Mean Platelet Volume 9 um3 (7.4-10.4); Red Blood Count 4.77 10^6/ul (4.0-5.4); Red Cell Distribution Width 14 % (10.5-15); White Blood Count 5.5 10^3/ul (3.5-10.8)
[2017-05-29] MEDS: Nicotine PATCH 21 MG/24 HR* PATCH TRANSDERM SCH (08:27)
[2017-05-29] MEDS: metFORMIN* 500 MG TAB PO SCH (08:28)
[2017-05-29] MEDS: Vitamin THERAPEUTIC TAB PO SCH (08:29)
[2017-05-29] MEDS: Divalproex ER TAB(*) 250 MG PO SCH (08:29)
--- NOTE | 2017-05-29 12:49 | DS ---
DISCHARGE SUMMARY DATE OF ADMISSION: 05/17/17 DATE OF DISCHARGE: 05/29/17 DISCHARGE DIAGNOSES: [place] I: Schizoaffective disorder, bipolar type. Tobacco use disorder. [place] II: Deferred. [place] III : Type 2 diabetes mellitus. [place] IV: Severe stressors related to severe and persistent mental illnes s. Social isolation. [place] V: 30. CONDITION AT TIME OF DISCHARGE: Fair, unchanged. Patient continues to present as disorganized, ruiz ential. He appears to be attending to internal stimuli. He was referred to critical access hospital hospitalization and gave mental health clearance. His referral was accepted by [facility] and he will be transported via [facility] today at 11:30. His current outpatient providers and family have been notified of his st atus. MENTAL STATUS EXAM: Patient is a thin framed, 51-year-old white male, dressed in paper scrubs. He is disheveled and with poor hygiene. He appears stated age. He is alert and oriented x3. His concentra tion is poor. His recall is poor. His mood is labile. His speech is rambling and pressured. Mumbles at times. Affect is flat, blunted. Eye contact is poor. Thought process is disorganized and tangenti al. Thought content is positive for paranoid delusions. Insight is poor. Judgment is poor. His fund of knowledge is adequate. marquetry worker has compiled referral packet. This has been reviewed by [facility] and psychiatrist, Dr. Hernandez. Provider to provider report has been given. Dr. Hernandez is knowledge able about patient as he has treated him in the past. CURRENT MEDICATIONS: 1. Clozapine 12.5 p.o. q.h.s. 2. Clonazepam 0.5 mg p.o. b.i.d. p.r.n. anxiety/agitation. 3. Depakote ER 750 mg p.o. q.a.m. 4. Depakote ER 1500 mg p.o. q.h.s. 5. Metformin 500 mg p.o. b.i.d. at 0800 and 1700. 6. Multivitamin daily. 7. Patient received nicotine replacement as he is a heavy smoker. He is prescribed nicotine patch 2 1 mg, nicotine gum, nicotine inhaler and nicotine lozenges. 8. Patient is on Invega Sustenna 234 mg IM every 4 weeks. Last injection was on 05/22/17 in the lef t deltoid. DIET: Diabetic. ACTIVITY: Ambulation as tolerated. There are no pending labs or diagnostic studies at time of discharge. He will be discharged from [facility] and transported via [facility] to [facility] for higher level of care. HOSPITAL COURSE A: REASON FOR ADMISSION: Patient was brought to the Emergency Department by police on a 941 status. He was actively psychotic and manic in the community. According to family he had not been taking hi s medication for the past year B: PSYCHIATRIC TREATMENT RENDERED: Patient was admitted to the adult behavioral services on 939 sta tus. Code status full. Safety checks every 15 minutes. Medication management involved obtaining medi cation history from [facility]. It had been told to staff upon patient's a dmission that he had been noncompliant with medications. We reinstated oral Invega and Depakote, as well as adding clonazepam 0.5 mg b.i.d. p.r.n. anxiety and agitation. Collateral information from [facility] reported that he had been compliant with his Invega Sustenna injections therefore oral Invega was discontinued. Laboratory data was obtained and it was noted that his valproic acid level was 52. De pakote was titrated eventually to 750 mg p.o. q.a.m. and 1500 mg p.o. q.h.s. This morning valproic a zach level was 98.0. Patient continued to present as disorganized and manic with the exception of imp roved sleep. His outpatient risperidone was titrated, but this was ineffective. It was decided due t o family collateral and provider collateral of no previous trials of clozapine it was decided to ini tiate clozapine trial. Patient started 12.5 mg at h.s. on Thursday the . Patient has thus far t olerated well and will continue titration at [facility]. CBC was obtained today within normal li mits. White blood cell count 5.5 and absolute neutrophils at 2.8. He will continue weekly CBC per pr otocol. As stated above patient was accepted as referral to [facility]. Provid er to provider report was given, and nurse to nurse report was done by nursing staff. marquetry worker Angelic Mccrary completed referral packet and this has been faxed to [facility]. Patient has been notified o f plan and [facility] will arrive to transport patient to [place] for 1 p.m. admission today . LEO YORK, VENUE ATTENDANT [id number]/[facility] #: [id number]
== END 2017-05-29 11:40 | DRG 885 ==
LOC: ED 13:22 → BSU 19:55
PROVIDERS: ADMIT Psychiatry & Neurology Psychiatry; ATTEND Psychiatry & Neurology Psychiatry
DX: F25.0 Schizoaffective disorder, bipolar type (principal); E11.9 Type 2 diabetes mellitus without complications; Z79.84 Long term (current) use of oral hypoglycemic drugs; Z91.14 Patient's other noncompliance with medication regimen; F17.210 Nicotine dependence, cigarettes, uncomplicated
CPT/HCPCS: 36415; 70450; 71010; 72125; 80053; 80061; 80164; 80320; 80329; 83036; 84443; 85025; 93005; 99222; 99231; 99232; 99238; A9270-GY; G0480

== ENCOUNTER 2021-07-20 08:01 | Inpatient (IN) ==
[2021-07-20] MEDS ORDERED: Lactated Ringers 1000 ml BAG 1,000 ML IV ONE ×2 (08:34→09:37)
[2021-07-20 08:48] LABS: ABS Eosinophils 0.1 10^3/ul (0-0.6); ABS Lymphocytes 0.8 10^3/ul (1.0-4.8); ABS Monocytes 0.5 10^3/ul (0-0.8); ABS Neutrophils 11.2 10^3/ul (1.5-7.7); Eosinophil % 0.5 %; Hematocrit 41 % (42-52); Hemoglobin 14.1 g/dL (14.0-18.0); Lymphocyte % 6.5 %; Mean Corpuscular HGB Conc 34 g/dL (31-36); Mean Corpuscular Hemoglobin 29 pg (27-31); Mean Corpuscular Volume 85 fL (80-94); Mean Platelet Volume 9.1 fL (7.4-10.4); Platelet Count 302 10^3/uL (150-450); Red Blood Count 4.85 10^6 /uL (4.18-5.48); Red Cell Distribution Width 14 % (10-15); White Blood Count 12.6 10^3/uL (3.5-10.8)
[2021-07-20 09:02] LABS: ALT 71 U/L (7-52); AST 64 U/L (13-39); Albumin 4.3 g/dL (3.2-5.2); Albumin/Globulin Ratio 1.8 (1-3); Alkaline Phosphatase 103 U/L (35-149); Anion Gap 19 mmol/L (2-11); Blood Urea Nitrogen 21 mg/dL (6-24); CO2 Carbon Dioxide 16 mmol/L (22-32); Calcium 9.6 mg/dL (8.6-10.3); Chloride 97 mmol/L (101-111); Creatine Kinase 646 U/L (10-223); Globulin 2.4 g/dL (2-4); Glucose 193 mg/dL (70-100); Magnesium 2.1 mg/dL (1.9-2.7); Potassium 4.1 mmol/L (3.5-5.0); Sodium 132 mmol/L (135-145); Total Protein 6.7 g/dL (6.4-8.9)
[2021-07-20 09:09] LABS: Acetaminophen < 15 mcg/mL; Alcohol, S < 13 mg/dL (<13); Salicylate < 2.50 mg/dL (<30)
[2021-07-20 09:19] LABS: TSH Ultra Thyroid Stim Horm 1.04 mcIU/mL (0.34-5.60)
[2021-07-20 09:21] LABS: Free T4 1.16 ng/dL (0.61-1.12)
[2021-07-20 09:33] LABS: PCO2 Arterial 28 mmHg (35-45); PO2 Arterial 99 mmHg (80-100)
[2021-07-20] MEDS ORDERED: LORazepam 2 mg VIAL 1 ml IV PUSH ONE (10:31)
[2021-07-20] MEDS ORDERED: Lorazepam PYXIS KEY PRN (10:31)
[2021-07-20 11:14] LABS: Urine Appearance Cloudy; Urine Bilirubin Negative (Negative); Urine Blood Negative (Negative); Urine Color Yellow; Urine Glucose 1+(50 mg/dL) (Negative); Urine Ketones 2+ (Negative); Urine Nitrite Negative (Negative); Urine Protein Negative (Negative); Urine Specific Gravity 1.016 (1.002-1.030); Urine Urobilinogen Negative (Negative)
[2021-07-20 11:27] LABS: Calcium 8.7 mg/dL (8.6-10.3); Potassium 3.9 mmol/L (3.5-5.0)
[2021-07-20 11:29] LABS: Urine Benzodiazepine Screen None Detected (None Detect); Urine Cannabinoids Screen None Detected (None Detect); Urine Opiates Screen None Detected (None Detect)
[2021-07-20] MEDS ORDERED: Al Hydrox/Mg Hydrox/Simet LIQ 30 ML UDC PO PRN (12:40)
[2021-07-20 13:26] LABS: Rapid COVID-19 Molecular Undetected (Undetected)
[2021-07-20] MEDS: Nicotine PATCH 14 MG/24 HR PATCH TRANSDERM SCH (19:08)
[2021-07-21] MEDS: Vitamin THERAPEUTIC TAB PO SCH (09:55)
[2021-07-21] MEDS: Nicotine PATCH 14 MG/24 HR PATCH TRANSDERM SCH (09:55)
[2021-07-22 08:26] LABS: HDL Cholesterol 31.3 mg/dL
[2021-07-22] MEDS: Vitamin THERAPEUTIC TAB PO SCH (09:05)
[2021-07-22] MEDS: Nicotine PATCH 14 MG/24 HR PATCH TRANSDERM SCH (09:05)
[2021-07-22] MEDS ORDERED: Paliperidone SUSTENNA 234 MG/1.5 ML IM ONE (15:00)
[2021-07-23] MEDS: Vitamin THERAPEUTIC TAB PO SCH (09:15)
[2021-07-23] MEDS: Nicotine PATCH 14 MG/24 HR PATCH TRANSDERM SCH (09:15)
[2021-07-24] MEDS: Vitamin THERAPEUTIC TAB PO SCH (08:05)
[2021-07-24] MEDS: Nicotine PATCH 14 MG/24 HR PATCH TRANSDERM SCH (08:07)
[2021-07-25] MEDS: Nicotine PATCH 14 MG/24 HR PATCH TRANSDERM SCH (15:28)
[2021-07-25] MEDS: Vitamin THERAPEUTIC TAB PO SCH (15:28)
[2021-07-26] MEDS: Vitamin THERAPEUTIC TAB PO SCH (10:30)
[2021-07-26] MEDS: Nicotine PATCH 14 MG/24 HR PATCH TRANSDERM SCH (10:30)
[2021-07-27] MEDS: Nicotine PATCH 14 MG/24 HR PATCH TRANSDERM SCH (08:01)
[2021-07-27] MEDS: Vitamin THERAPEUTIC TAB PO SCH (08:01)
[2021-07-28] MEDS: Vitamin THERAPEUTIC TAB PO SCH (08:45)
[2021-07-28] MEDS: Nicotine PATCH 14 MG/24 HR PATCH TRANSDERM SCH (08:45)
[2021-07-29] MEDS: Vitamin THERAPEUTIC TAB PO SCH (08:39)
[2021-07-29] MEDS: Nicotine PATCH 14 MG/24 HR PATCH TRANSDERM SCH (08:40)
[2021-07-30] MEDS: Vitamin THERAPEUTIC TAB PO SCH (07:48)
[2021-07-30] MEDS: Nicotine PATCH 14 MG/24 HR PATCH TRANSDERM SCH (07:50)
[2021-07-31] MEDS: Vitamin THERAPEUTIC TAB PO SCH (09:17)
[2021-07-31] MEDS: Nicotine PATCH 14 MG/24 HR PATCH TRANSDERM SCH (09:17)
[2021-08-01] MEDS: Vitamin THERAPEUTIC TAB PO SCH (10:04)
[2021-08-01] MEDS: Nicotine PATCH 14 MG/24 HR PATCH TRANSDERM SCH (10:04)
[2021-08-02] MEDS: Nicotine PATCH 14 MG/24 HR PATCH TRANSDERM SCH (07:01)
[2021-08-02] MEDS: Vitamin THERAPEUTIC TAB PO SCH (10:00)
[2021-08-03] MEDS: Vitamin THERAPEUTIC TAB PO SCH (10:32)
[2021-08-03] MEDS: Nicotine PATCH 14 MG/24 HR PATCH TRANSDERM SCH (10:35)
[2021-08-04] MEDS: Vitamin THERAPEUTIC TAB PO SCH (09:38)
[2021-08-04] MEDS: Nicotine PATCH 14 MG/24 HR PATCH TRANSDERM SCH (09:39)
[2021-08-05] MEDS: Vitamin THERAPEUTIC TAB PO SCH (08:26)
[2021-08-05] MEDS: Nicotine PATCH 14 MG/24 HR PATCH TRANSDERM SCH (08:34)
[2021-08-06] MEDS: Vitamin THERAPEUTIC TAB PO SCH (07:41)
[2021-08-06] MEDS: Nicotine PATCH 14 MG/24 HR PATCH TRANSDERM SCH (07:42)
[2021-08-07] MEDS: Vitamin THERAPEUTIC TAB PO SCH (08:52)
[2021-08-07] MEDS: Nicotine PATCH 14 MG/24 HR PATCH TRANSDERM SCH (09:19)
[2021-08-08] MEDS: Nicotine PATCH 14 MG/24 HR PATCH TRANSDERM SCH (07:30)
[2021-08-08] MEDS: Vitamin THERAPEUTIC TAB PO SCH (10:38)
[2021-08-09] MEDS: Vitamin THERAPEUTIC TAB PO SCH (09:43)
[2021-08-09] MEDS: Nicotine PATCH 14 MG/24 HR PATCH TRANSDERM SCH (09:44)
[2021-08-09 14:14] LABS: ABS Eosinophils 0.1 10^3/ul (0-0.6); ABS Lymphocytes 1.2 10^3/ul (1.0-4.8); ABS Monocytes 0.5 10^3/ul (0-0.8); Eosinophil % 1.4 %; Hematocrit 39 % (42-52); Hemoglobin 13.2 g/dL (14.0-18.0); Lymphocyte % 13.8 %; Mean Corpuscular HGB Conc 34 g/dL (31-36); Mean Corpuscular Hemoglobin 29 pg (27-31); Mean Corpuscular Volume 85 fL (80-94); Mean Platelet Volume 8.1 fL (7.4-10.4); Platelet Count 326 10^3/uL (150-450); Red Blood Count 4.63 10^6 /uL (4.18-5.48); Red Cell Distribution Width 14 % (10-15); White Blood Count 8.9 10^3/uL (3.5-10.8)
[2021-08-10] MEDS: Nicotine PATCH 14 MG/24 HR PATCH TRANSDERM SCH (07:29)
[2021-08-10] MEDS: Vitamin THERAPEUTIC TAB PO SCH (09:44)
[2021-08-11] MEDS: Nicotine PATCH 14 MG/24 HR PATCH TRANSDERM SCH (07:06)
[2021-08-11] MEDS: Vitamin THERAPEUTIC TAB PO SCH (08:47)
[2021-08-12] MEDS: Nicotine PATCH 14 MG/24 HR PATCH TRANSDERM SCH (07:23)
[2021-08-12] MEDS: Vitamin THERAPEUTIC TAB PO SCH (07:23)
[2021-08-13] MEDS: Vitamin THERAPEUTIC TAB PO SCH (10:05)
[2021-08-13] MEDS: Nicotine PATCH 14 MG/24 HR PATCH TRANSDERM SCH (10:38)
[2021-08-14] MEDS: Vitamin THERAPEUTIC TAB PO SCH (09:09)
[2021-08-14] MEDS: Nicotine PATCH 14 MG/24 HR PATCH TRANSDERM SCH (09:13)
[2021-08-15] MEDS: Nicotine PATCH 14 MG/24 HR PATCH TRANSDERM SCH (07:21)
[2021-08-15] MEDS: Vitamin THERAPEUTIC TAB PO SCH (09:28)
[2021-08-16] MEDS: Nicotine PATCH 14 MG/24 HR PATCH TRANSDERM SCH (13:44)
[2021-08-16] MEDS: Vitamin THERAPEUTIC TAB PO SCH (13:44)
[2021-08-17] MEDS: Nicotine PATCH 14 MG/24 HR PATCH TRANSDERM SCH (09:09)
[2021-08-17] MEDS: Vitamin THERAPEUTIC TAB PO SCH (09:09)
[2021-08-18 09:36] LABS: ABS Basophils 0.1 10^3/ul (0-0.2); ABS Eosinophils 0.1 10^3/ul (0-0.6); ABS Lymphocytes 1.4 10^3/ul (1.0-4.8); ABS Monocytes 0.6 10^3/ul (0-0.8); ABS Neutrophils 9.8 10^3/ul (1.5-7.7); Eosinophil % 1.1 %; Hematocrit 42 % (42-52); Hemoglobin 13.8 g/dL (14.0-18.0); Lymphocyte % 11.8 %; Mean Corpuscular HGB Conc 33 g/dL (31-36); Mean Corpuscular Hemoglobin 28 pg (27-31); Mean Corpuscular Volume 85 fL (80-94); Mean Platelet Volume 8.4 fL (7.4-10.4); Platelet Count 301 10^3/uL (150-450); Red Blood Count 4.87 10^6 /uL (4.18-5.48); Red Cell Distribution Width 14 % (10-15); White Blood Count 12.1 10^3/uL (3.5-10.8)
[2021-08-18] MEDS: Vitamin THERAPEUTIC TAB PO SCH (09:59)
[2021-08-18] MEDS: Nicotine PATCH 14 MG/24 HR PATCH TRANSDERM SCH (09:59)
[2021-08-19] MEDS: Vitamin THERAPEUTIC TAB PO SCH (09:39)
[2021-08-19] MEDS: Nicotine PATCH 14 MG/24 HR PATCH TRANSDERM SCH (09:40)
[2021-08-20] MEDS: Vitamin THERAPEUTIC TAB PO SCH (08:53)
[2021-08-20] MEDS: Nicotine PATCH 14 MG/24 HR PATCH TRANSDERM SCH (08:55)
[2021-08-21] MEDS: Nicotine PATCH 14 MG/24 HR PATCH TRANSDERM SCH (09:02)
[2021-08-21] MEDS: Vitamin THERAPEUTIC TAB PO SCH (09:03)
[2021-08-22] MEDS: Vitamin THERAPEUTIC TAB PO SCH (08:36)
[2021-08-22] MEDS: Nicotine PATCH 14 MG/24 HR PATCH TRANSDERM SCH (08:38)
[2021-08-23] MEDS: Vitamin THERAPEUTIC TAB PO SCH (09:41)
[2021-08-23] MEDS: Nicotine PATCH 14 MG/24 HR PATCH TRANSDERM SCH (09:41)
[2021-08-23] MEDS ORDERED: Paliperidone SUSTENNA 234 MG/1.5 ML IM ONE (10:00)
[2021-08-23] MEDS ORDERED: COVID-19 VACCINE, MRNA(MODERNA) BOOSTER/PF 50 MCG/0.25 ML IM ONE (15:51)
[2021-08-24] MEDS: Nicotine PATCH 14 MG/24 HR PATCH TRANSDERM SCH (09:37)
[2021-08-24] MEDS: Vitamin THERAPEUTIC TAB PO SCH (09:37)
[2021-08-25] MEDS: Vitamin THERAPEUTIC TAB PO SCH (09:34)
[2021-08-25] MEDS: Nicotine PATCH 14 MG/24 HR PATCH TRANSDERM SCH (09:35)
[2021-08-26] MEDS: Vitamin THERAPEUTIC TAB PO SCH (09:55)
[2021-08-26] MEDS: Nicotine PATCH 14 MG/24 HR PATCH TRANSDERM SCH (09:56)
[2021-08-27] MEDS: Vitamin THERAPEUTIC TAB PO SCH (08:06)
[2021-08-27] MEDS: Nicotine PATCH 14 MG/24 HR PATCH TRANSDERM SCH (08:07)
[2021-08-27 08:26] VITALS: BP 122/68
== END 2021-08-27 12:36 | DRG 885 ==
LOC: ED 08:01 → BSU 12:40
PROVIDERS: ADMIT Psychiatry & Neurology Psychiatry; ATTEND Psychiatry & Neurology Psychiatry